=== PATIENT | female | born 1995 | race Caucasian/White ===

== ENCOUNTER → 2021-03-27 | Outpatient (CLI) | payer BC ==
[~2021-03-27] MED LIST: BENTYL 20MG TAB20 MG PO; REGLAN10 MG PO
[2021-03-28 09:14] LABS: VITAMIN D, 25-HYDROXY 22.7 ng/mL (30.0-100.0)
[2021-03-28 12:14] LABS: RHEUMATOID ARTHRITIS FACTOR <10.0 IU/mL (0.0-13.9)
== END ==
LOC: LAB 09:15
PROVIDERS: Nurse Practitioner Family
DX: M79.642 Pain in left hand (principal); M79.641 Pain in right hand; D89.9 Disorder involving the immune mechanism, unspecified; M25.50 Pain in unspecified joint; R76.8 Other specified abnormal immunological findings in serum
CPT/HCPCS: 36415; 73130; 82550; 82728; 83520; 84439; 84443; 85652; 86140; 86200; 86431

== ENCOUNTER → 2021-06-26 | Outpatient (CLI) | payer BC | LOC: LBRF 15:01 | DX: R19.7 Diarrhea, unspecified (principal) | CPT/HCPCS: 83993 ==